=== PATIENT | male | born 1960 | race Caucasian/White ===

== ENCOUNTER 2017-02-25 09:44 | Day surgery (SDC) | payer MEDICARE, OTHER ==
--- NOTE | ~2017-02-25 | EGD ---
EGD REPORT [facility] [address] [address] NAME: MARTIN ELIZABETH : 58 STATUS : REG [facility]#: [id number] AGE: 56 ADM/REG DATE : 02/25/17 MR#: [id number] REPORT SERV DATE: 02/25/17 DICTATED BY: ABNER NEVAREZ DATE: 02/25/17 REPORT STATUS : Draft TRANSCRIBED BY: [facility] DATE: 02/25/17 [facility] Patient Name: Martin Elizabeth Date of : 1960 Attending MD: ABNER NEVAREZ MD Procedure Date No Time: 02/25/2017 Procedure: Colonoscopy Indications: Surveillance: Personal history of adenomatous polyps on last colonoscopy > 3 years ago Referring MD: Latesha Madera Medicines: Propofol per Anesthesia Complications: No immediate complications. Procedure: Pre-Anesthesia Assessment: - ASA Grade Assessment: III - A patient with severe systemic disease. After I obtained informed consent, the scope was passed under direct vision. Throughout the procedure, the patient's blood pressure, pulse, and oxygen saturations were monitored continuously. The CF [id number] was introduced through the anus and advanced to the terminal ileum. The appendiceal orifice, terminal ileum and rectum were photographed. The colonoscopy was performed without difficulty. The patient tolerated the procedure well. The quality of the bowel preparation was good. Findings: The perianal and digital rectal examinations were normal. The terminal ileum appeared normal. The colon (entire examined portion) appeared normal. Non-bleeding internal hemorrhoids were found during retroflexion and were moderate, medium-sized and Grade I (internal hemorrhoids that do not prolapse). Impression: - The examined portion of the ileum was normal. - The entire examined colon is normal. - Non-bleeding internal hemorrhoids. Recommendation: - Patient has a contact number available for emergencies. The signs and symptoms of potential delayed complications were discussed with the patient. Return to normal activities tomorrow. Written discharge instructions were provided to the patient. - Return to previous diet. - Continue present medications. - Repeat colonoscopy in 5 years for surveillance. EGD REPORT [facility] [address] [address] NAME: MARTIN ELIZABETH : [birth year] STATUS : [facility]#: [id number] AGE: 56 ADM/REG DATE : 02/25/17 MR#: [id number] REPORT SERV DATE: 02/25/17 DICTATED BY: ABNER NEVAREZ DATE: 02/25/17 REPORT STATUS : Draft TRANSCRIBED BY: [employer] DATE: 02/25/17 - Return to my office as previously scheduled. - Discharge patient to home. Procedure Code(s): --- Professional --- G0105, Colorectal cancer screening; colonoscopy on individual at high risk Diagnosis Code(s): --- Professional --- K64.0, First degree hemorrhoids Z86.010, Personal history of colonic polyps CPT copyright 2013 [employer]. All rights reserved. The codes documented in this report are preliminary and upon lubricating engineer review may be revised to meet current compliance requirements. Abner Nevarez MD ABNER NEVAREZ MD 02/25/2017 12:42 PM This report has been signed electronically. Number of Addenda: 0 Note Initiated On: 02/25/2017 12:01 PM Scope Withdrawal Time 0 hours 8 minutes 3 seconds [id number] [id number]
[~2017-02-25 09:44] MED LIST: ALLEGRA180 PO; FLONASE NAS; MIRALAX POWDER1 PKT PO; MULTIPLE VIT PO; PAXIL40 MG PO; ROBITUSS11 OR; SUDOGEST OR; [UNRECOGNIZED DRUG - OTHER]; [UNRECOGNIZED DRUG - OTHER] OR
== END 2017-02-25 23:59 | disposition home health service (06) ==
LOC: DMU 09:44
PROVIDERS: Internal Medicine Gastroenterology
PROC: 0DJD8ZZ Inspection of Lower Intestinal Tract, Via Natural or Artificial Opening Endoscopic (ICD-10-PCS; principal; 2017-02-25 11:00)
DX: Z12.11 Encounter for screening for malignant neoplasm of colon (principal); K64.0 First degree hemorrhoids; R56.9 Unspecified convulsions; E78.00 Pure hypercholesterolemia, unspecified; Z86.010 Personal history of colon polyps; Z88.0 Allergy status to penicillin; Z88.8 Allergy status to other drugs, medicaments and biological substances; Z79.899 Other long term (current) drug therapy; Z98.890 Other specified postprocedural states